=== PATIENT | female | born 1950 | race Caucasian/White ===

== ENCOUNTER → 2016-10-29 | Outpatient (CLI) | payer MEDICARE | LOC: LABWHC1 09:08 | PROVIDERS: ATTEND Internal Medicine | DX: E03.9 Hypothyroidism, unspecified (principal) | CPT/HCPCS: 36415; 84439; 84443 ==

== ENCOUNTER → 2017-02-20 | Outpatient (CLI) | payer MEDICARE ==
[2017-02-20 08:45] LABS: Basophils % (A) 1 %; CH 31.5; CHCM 32.6; Eosinophils # (A) 0.3 k/uL (0-0.7); Eosinophils % (A) 5 %; HCT 43.8 % (34.0-46.0); HDW 2.27; HGB 13.8 gm/dL (11.4-16.0); Luc # (Auto) 0.13; Luc % (Auto) 3; Lymphocytes # (A) 1.4 k/uL (1.0-4.8); Lymphocytes % (A) 27 %; MCH 30.6 pg (25.0-35.0); MCHC 31.5 g/dL (31.0-37.0); MCV 97.1 fL (80.0-100.0); Monocytes # (A) 0.3 k/uL (0-1.0); Monocytes % (A) 6 %; Neutrophils % (A) 58 %; RBC 4.52 m/uL (3.80-5.40); RDW 13.3 % (11.5-15.5); WBC 5.1 k/uL (3.8-10.6); WBC (Perox) 4.93
[2017-02-20 09:00] LABS: ALT 34 U/L (9-52); AST 29 U/L (14-36); Alkaline Phosphatase 53 U/L (38-126); Anion Gap 8 mmol/L; Blood Urea Nitrogen 16 mg/dL (7-17); Calcium 9.4 mg/dL (8.4-10.2); Carbon Dioxide 29 mmol/L (22-30); Chloride 103 mmol/L (98-107); Glucose 83 mg/dL (74-99); Non-African American GFR(MDRD) 60 (>60 ml/min/1.73 sqM); Potassium 4.5 mmol/L (3.5-5.1); Sodium 140 mmol/L (137-145); Total Bilirubin 0.5 mg/dL (0.2-1.3); Total Protein 6.3 g/dL (6.3-8.2)
== END | disposition home or self-care (01) ==
LOC: LABWHC1 07:55
PROVIDERS: ATTEND Internal Medicine
DX: E03.9 Hypothyroidism, unspecified (principal); M06.9 Rheumatoid arthritis, unspecified
CPT/HCPCS: 36415; 80053; 84439; 84443; 85025

== ENCOUNTER → 2017-12-30 | Outpatient (CLI) | payer MEDICARE ==
[2017-12-30 09:51] LABS: T4, Free (Free Thyroxine) 1.27 ng/dL (0.78-2.19)
== END ==
LOC: LABWHC1 08:27
PROVIDERS: ATTEND Internal Medicine
DX: E03.9 Hypothyroidism, unspecified (principal)
CPT/HCPCS: 36415; 84439; 84443

== ENCOUNTER → 2018-04-02 | Outpatient (CLI) | payer MEDICARE ==
[2018-04-02 08:14] VITALS: BP 147/70; PULSE 74; TEMP 97.1; BMI 26.7
--- NOTE | 2018-04-02 08:53 | P.HPOB ---
History of Present Illness H&P Date: 04/02/18 Chief Complaint: The patient is here for her routine gynecologic exam and mammogram. This is a 67-year-old G3 PIII with LMP of 2003. The patient is without gynecologic complaints and denies any postmenopausal bleeding. Review of Systems Weight has been stable.. She denies respiratory, cardiac and G.I. problems. She denies maltreatment or problems with falling. : she denies any significant problems with urinary leakage. Past Medical History Past Medical History: Rheumatoid Arthritis (RA), Thyroid Disorder (Hypothyroid) Additional Past Medical History / Comment(s): sjogrens. Osteopenia. 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 History of Any Multi-Drug Resistant Organisms: None Reported Past Surgical History: Section (x3), Cholecystectomy Additional Past Surgical History / Comment(s): partial right thyroidectomy, lipoma right shoulder, multiple D&Cs Past Anesthesia/Blood Transfusion Reactions: No Reported Reaction Past Psychological History: No Psychological Hx Reported Smoking Status: Never smoker Past Alcohol Use History: None Reported Past Drug Use History: None Reported Additional History: She has been since 1999 and this is her 2nd marriage. She does not work outside of the home. - Past Family History Father Family Medical History: Congestive Heart Failure (CHF), Diabetes Mellitus, Myocardial Infarction ([place]) Brother(s) Family Medical History: Myocardial Infarction (ID) Additional Family Medical History / Comment(s): Another brother had skin cancer Medications and Allergies Home Medications Medication Instructions Recorded Confirmed Type Cetirizine HCl [Zyrtec] PO DAILY 04/02/18 History Cevimeline [Evoxac] PO DAILY 04/02/18 History Hydroxychloroquine Sulfate PO BID 04/02/18 History [Plaquenil] Levothyroxine Sodium [Synthroid] PO DAILY 04/02/18 History Ranitidine HCl [Zantac] PO DAILY 04/02/18 History Vitamin B Complex PO DAILY 04/02/18 History Allergies Allergy/AdvReac Type Severity Reaction Status Date / Time No Known Allergies Allergy Unverified 04/02/18 08:07 Exam Vital Signs Temp Pulse BP 04/02/18 08:10 97.1 F L 74 147/70 Intake and Output 04/01/18 04/02/18 04/02/18 22:59 06:59 14:59 Other: Weight 70.76 kg Height 5'4", BMI 26.8. This is a well-developed well-nourished white female who is alert and oriented times 3 in no acute distress. HEENT: Within normal limits. NECK: Supple without mass or thyromegaly. CHEST AND LUNGS: Clear to auscultation. HEART: Regular rate and rhythm. BREASTS: Are without mass or discharge. AXILLARY EXAM: Negative for adenopathy. BACK: Negative for CVA tenderness. ABDOMEN: Soft, nontender, without palpable masses. PELVIC EXAM: Normal external genitalia with moderate atrophy. Cervix and vagina appear normal with moderate atrophy. There is no unusual discharge. There is no evidence of prolapse. The uterus is midposition, nongravid size and nontender. There are no palpable adnexal masses or tenderness. RECTAL EXAM: rectovaginal exam is negative for mass or tenderness and is negative for occult blood. EXTREMITIES: Nontender. IMPRESSION: 1. 67-year-old menopausal female with normal gynecologic exam. 2. History of osteopenia. Her last bone density test was more than 10 years ago. PLAN: 1. Pap smear was performed. 2. Self breast awareness was discussed with the patient. 3. Screening mammogram will be done today. 4. Osteoporosis prevention was discussed. Bone density screening will be done today. 5. We discussed her elevated blood pressure. She does take her on blood pressures at home. She will do this on a regular basis and follow-up with Dr. Eng for blood pressure elevations. 6. She is planning to get her flu shot in the near future. 7. I have recommended screening colonoscopy since she has never had this done. She will see Dr. Eng about this and will look into doing this. 8. She will return in one year.
--- NOTE | 2018-04-02 16:24 | BD ---
EXAMINATION TYPE: Axial Bone Density DATE OF EXAM: 04/02/2018 COMPARISON: NONE CLINICAL HISTORY: Height: 4 FT 11 IN Weight: 153 FRAX RISK QUESTIONS: Secondary Osteoporosis: 3. Menopause before 45: YES Rheumatoid Arthritis: YES RISK FACTORS HISTORY OF: Active: YES Postmenopausal woman: AGE 43 Take estrogen and/or progesterone medications: TOOK HORMONES FROM AGE [age] MEDICATIONS: Additional Medications: CEVLEMELINE HCL ,L- THYROXINE, HYDROXYCHLOROQUINE,TRAMADOL,RESTASIS Additional History: EXAM MEASUREMENTS: Bone mineral densitometry was performed using the [employer] System. Bone mineral density as measured about the Lumbar spine is: ----- L1-L4(G/cm2): 0.957 T Score Values are as follows: ----- L2: -1.7 ----- L3: -1.6 ----- L4: -2.3 ----- L1-L4: -1.9 FIRST TIME HERE Bone mineral density about the R hip (g/cm2): 0.695 Bone mineral density about the L hip (g/cm2): 0.690 T Score values are as follows: -----R Neck: -2.5 -----L Neck: -2.5 -----R Total: -2.1 -----L Total: -1.9 FIRSR TIME HERE IMPRESSION: Osteoporosis (T Score less than -2.5). There is increased fracture risk and therapy is usually indicated based on age. Re-Screen 1-2 years. NOTE: T-SCORE=SD OF THE YOUNG ADULT MEAN.
--- NOTE | 2018-04-03 13:54 | MM ---
Reason for exam: screening (asymptomatic). Last mammogram was performed 2 years and 5 months ago. History: Patient is postmenopausal. Took estrogen beginning at age 45. Physical Findings: A clinical breast exam by your physician is recommended on an annual basis and results should be correlated with mammographic findings. MG Screening Mammo w CAD Bilateral CC and MLO view(s) were taken. Prior study comparison: November 08, 2015, bilateral MG 3d screening mammo w/cad. February 05, 2012, [facility] DIGITAL LEFT BREAST MAMMOGRAM w/CAD. The breast tissue is heterogeneously dense. This may lower the sensitivity of mammography. There is no discrete abnormality. ASSESSMENT: Negative, BI-RAD 1 RECOMMENDATION: Routine screening mammogram of both breasts in 1 year.
== END ==
LOC: WWCWWP 07:47
PROVIDERS: ATTEND Obstetrics & Gynecology
DX: Z12.31 Encounter for screening mammogram for malignant neoplasm of breast (principal); M81.0 Age-related osteoporosis without current pathological fracture
CPT/HCPCS: 77067; 77080

== ENCOUNTER → 2018-05-21 | Outpatient (CLI) | payer MEDICARE ==
[2018-05-21 17:10] LABS: Calcium 9.2 mg/dL (8.7-10.3)
== END | disposition home or self-care (01) ==
LOC: LABWHC1 07:11
PROVIDERS: ATTEND Obstetrics & Gynecology
DX: M81.0 Age-related osteoporosis without current pathological fracture (principal)
CPT/HCPCS: 36415; 82306; 82310; 82565

== ENCOUNTER → 2018-09-23 | Outpatient (CLI) | payer MEDICARE ==
[2018-09-23 08:42] LABS: Basophils % (A) 1 %; Eosinophils # (A) 0.3 k/uL (0-0.7); Eosinophils % (A) 4 %; HCT 42.8 % (34.0-46.0); HGB 13.6 gm/dL (11.4-16.0); Lymphocytes # (A) 1.5 k/uL (1.0-4.8); Lymphocytes % (A) 24 %; MCH 29.7 pg (25.0-35.0); MCHC 31.7 g/dL (31.0-37.0); MCV 93.7 fL (80.0-100.0); Mean Platelet Volume 6.5; Monocytes # (A) 0.4 k/uL (0-1.0); Monocytes % (A) 6 %; Neutrophils % (A) 64 %; Platelet Count 380 k/uL (150-450); RBC 4.56 m/uL (3.80-5.40); RDW 13.9 % (11.5-15.5); WBC 6.3 k/uL (3.8-10.6)
[2018-09-23 17:58] LABS: Albumin 4.3 g/dL (3.80-4.90); Albumin/Globulin Ratio 2.05 (1.60-3.17); Anion Gap 7.6 mmol/L (4.00-12.00); Calcium 9.4 mg/dL (8.7-10.3); Carbon Dioxide 27.4 mmol/L (21.6-31.8); Globulin 2.1 g/dL (1.6-3.3); Potassium 4.5 mmol/L (3.5-5.5); Total Bilirubin 0.7 mg/dL (0.3-1.2); Total Protein 6.4 g/dL (6.2-8.2)
[2018-09-23 18:05] LABS: T4, Free (Free Thyroxine) 1.3 ng/dL (0.80-1.80)
== END ==
LOC: LABWHC1 08:26
PROVIDERS: ATTEND Internal Medicine
DX: K21.9 Gastro-esophageal reflux disease without esophagitis (principal); E03.9 Hypothyroidism, unspecified
CPT/HCPCS: 36415; 80053; 84439; 84443; 85025

== ENCOUNTER → 2020-01-05 | Outpatient (CLI) | payer MEDICARE ==
[2020-01-05 14:18] VITALS: BP 152/78; PULSE 85; RESP 18; TEMP 98.2
--- NOTE | 2020-01-05 14:53 | P.HPOB ---
History of Present Illness H&P Date: 01/05/20 Chief Complaint: The patient is here for her routine gynecologic exam and ma mmogram. This is a 69-year-old with an LMP of 2003. The patient is without gynecologic complaints and denies any postmenopausal bleeding. Review of Systems Weight has been stable. She denies respiratory, cardiac and G.I. problems. She denies maltreatment or problems with falling. : she denies any significant problems with urinary leakage. Past Medical History Past Medical History: Rheumatoid Arthritis (RA), Thyroid Disorder Additional Past Medical History / Comment(s): sjogrens. Hypothyroidism. Osteopenia. 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 History of Any Multi-Drug Resistant Organisms: None Reported Past Surgical History: Section, Cholecystectomy Additional Past Surgical History / Comment(s): partial right thyroidectomy, lipoma right shoulder, multiple D&Cs Past Anesthesia/Blood Transfusion Reactions: No Reported Reaction Past Psychological History: No Psychological Hx Reported Smoking Status: Never smoker Past Alcohol Use History: None Reported Past Drug Use History: None Reported Additional History: She has been since 1999 and this is her second marriage. She does not work outside of the home. - Past Family History Father Family Medical History: Congestive Heart Failure (CHF), Diabetes Mellitus, Myocardial Infarction ([place]) Brother(s) Family Medical History: Myocardial Infarction ([place]) Additional Family Medical History / Comment(s): Another brother had skin cancer Medications and Allergies Home Medications Medication Instructions Recorded Confirmed Type Cetirizine HCl [Zyrtec] 10 mg PO DAILY 04/02/18 01/05/20 History Cevimeline [Evoxac] 30 mg PO TID 04/02/18 01/05/20 History Hydroxychloroquine Sulfate 200 mg PO BID 04/02/18 01/05/20 History [Plaquenil] Levothyroxine Sodium [Synthroid] 88 mcg PO DAILY 04/02/18 01/05/20 History Vitamin B Complex 1 tab PO DAILY 04/02/18 01/05/20 History Cholecalciferol [Vitamin D3 (25 2,000 unit PO DAILY 01/05/20 01/05/20 History Mcg = 1000 Iu)] Famotidine 40 mg PO DAILY 01/05/20 01/05/20 History [place] Siddiqi 1 tab PO DAILY 01/05/20 01/05/20 History cycloSPORINE [Restasis] 1 applicator BOTH EYES BID 01/05/20 01/05/20 History traMADol HCL 50 mg PO HS 01/05/20 01/05/20 History Allergies Allergy/AdvReac Type Severity Reaction Status Date / Time No Known Allergies Allergy Unverified 01/05/20 14:05 Exam Vital Signs Temp Pulse Resp BP Pulse Ox 01/05/20 14:12 98.2 F 85 18 152/78 96 Intake and Output 01/04/20 01/05/20 01/05/20 22:59 06:59 14:59 Other: Weight 69.853 kg Height 5 feet 0 inches, weight 154 pounds, BMI 30.1. This is a well-developed well-nourished white female who is alert and oriented times 3 in no acute distress. HEENT: Within normal limits. NECK: Supple without mass or thyromegaly. CHEST AND LUNGS: Clear to auscultation. HEART: Regular rate and rhythm. BREASTS: Are without mass or discharge. AXILLARY EXAM: Negative for adenopathy. BACK: Negative for CVA tenderness. ABDOMEN: Soft, nontender, without palpable masses. PELVIC EXAM: Normal external genitalia with mild to moderate atrophy. Cervix and vagina appear normal mild to moderate atrophy. There is no unusual discharge. There is no evidence of prolapse. The uterus is midposition, nongravid size and nontender. There are no palpable adnexal masses or tenderness. RECTAL EXAM: Rectovaginal exam is negative for mass or tenderness and is negative for occult blood. EXTREMITIES: Nontender. IMPRESSION: 1. 69-year-old menopausal female with normal gynecologic exam. 2. History of osteoporosis. The patient is declining medications at this time. PLAN: 1. Pap smear was deferred since she had a normal one on 04/02/2018. We will repeat the Pap smear in 1-2 years and if this is negative, we will consider discontinuing Pap smears at that time. Pap smears will be continued until we have documented adequate screening with 3 negative Pap smears. She had negative Pap smears in 2015 and 2017. 2. Self breast awareness was discussed with the patient. 3. Screening mammogram will be done today. 4. Osteoporosis management was discussed. I have stressed the importance of adequate calcium, vitamin D and regular exercise. Recommended amounts of calci um and vitamin D were also discussed. She states if there is a decrease in bone strength from her last bone density test, she will consider medications. I have recommended repeating bone density testing after March 2020. The order slip was given to the patient for this. 5. I have recommended colorectal cancer screening. She states she has never had a colonoscopy and is not interested in having one. She states she had a cologuard test 3 years ago. She will discuss repeating this testing with her PCP. 6. She did receive her flu shot this past fall. 7. The patient was advised to return in 1-2 years for her well woman examination.
--- NOTE | 2020-01-06 07:27 | MM ---
Reason for exam: screening (asymptomatic). Last mammogram was performed 1 year and 9 months ago. History: Patient is postmenopausal. Took estrogen beginning at age 45. Physical Findings: Nurse did not find any significant physical abnormalities on exam. MG 3D Screening Mammo W/Cad Bilateral CC and MLO view(s) were taken. Prior study comparison: April 02, 2018, bilateral MG screening mammo w CAD. November 08, 2015, bilateral MG 3d screening mammo w/cad. The breast tissue is extremely dense which could obscure a lesion on mammography. There is chronic nodularity in the left breast. No significant changes when compared with prior studies. ASSESSMENT: Negative, BI-RAD 1 RECOMMENDATION: Routine screening mammogram of both breasts in 1 year.
== END | disposition home or self-care (01) ==
LOC: WWCWWP 13:58
PROVIDERS: ATTEND Obstetrics & Gynecology
DX: Z12.31 Encounter for screening mammogram for malignant neoplasm of breast (principal)
CPT/HCPCS: 77063; 77067